=== PATIENT | female | born 2000 | race African-American/Black ===

== ENCOUNTER 2020-11-04 00:13 | Emergency (ER) | payer MEDICAID ==
[~2020-11-04] VITALS: Ht 144.8 cm; Wt 81.8 kg
[2020-11-04 00:16] VITALS: BP 120/81; Ht 144.8 cm; Wt 81.8 kg
[2020-11-04] MEDS ORDERED: CEPHALEXIN500 M1 PO (00:41)
[2020-11-04] MEDS ORDERED: OMEPRAZOLE40 MG PO (00:41)
== END 2020-11-04 00:59 | disposition home or self-care (01) ==
LOC: D.ER 00:13
DX: K08.89 Other specified disorders of teeth and supporting structures (principal); K04.7 Periapical abscess without sinus; S02.5XXA Fracture of tooth (traumatic), initial encounter for closed fracture